=== PATIENT | female | born 1990 | race Caucasian/White ===

== ENCOUNTER 2017-12-30 09:39 | Emergency (ER) | payer MEDICAID ==
[2017-12-30] MEDS: SOD CHLORIDE 0.9% 1,000 ML IV ×2 (10:11→11:36)
[2017-12-30] MEDS: ONDANSETRON 4 MG INJ IV (10:11)
[2017-12-30 10:20] LABS: ADD MAN DIFF? NO
[2017-12-30 10:26] LABS: BASOPHIL # 0.1 10^3/ul (0.0-0.1); BASOPHILS % 0.6 % (0.0-2.0); EOSINOPHILS # 0.1 10^3/ul (0.0-0.5); EOSINOPHILS % 1.1 % (0.0-7.0); LYMPHOCYTES # 2.3 10^3/ul (0.8-2.9); LYMPHOCYTES % 22.8 % (15.0-51.0); MEAN CORPUSCULAR HEMOGLOBIN 31.7 pg (29.0-33.0); MEAN CORPUSCULAR VOLUME 90.7 fl (82.0-101.0); MEAN PLATELET VOLUME 10.9 fl (7.4-10.4); MONOCYTE # 0.5 10^3/ul (0.3-0.9); MONOCYTES % 5.4 % (0.0-11.0); NEUTROPHILS % 69.8 % (39.0-77.0); PLATELET COUNT 249 10^3/UL (140-415); RED BLOOD COUNT 4.41 10^6/ul (4.20-5.40); RED CELL DISTRIBUTION WIDTH 12.2 % (11.5-14.5)
[2017-12-30 10:26] LABS: WHITE BLOOD COUNT 10.1 10^3/ul (4.8-10.8)
[2017-12-30 10:44] LABS: ALANINE AMINOTRANSFERASE 33 IU/L (13-69); ALBUMIN 4.8 g/dl (3.3-4.9); ALBUMIN/GLOBULIN RATIO 1.65; ALKALINE PHOSPHATASE 65 IU/L (42-121); ANION GAP 18 (8-16); ASPARTATE AMINO TRANSFERASE 26 IU/L (15-46); BILIRUBIN,INDIRECT 1.2 mg/dl (0-1.1); BILIRUBIN,TOTAL 1.2 mg/dl (0.2-1.3); BLOOD UREA NITROGEN 15 mg/dl (7-20); CALCIUM 9.5 mg/dl (8.4-10.2); CARBON DIOXIDE 21 mmol/L (21-31); CHLORIDE 109 mmol/L (97-110); CREATININE 0.65 mg/dl (0.44-1.00); GLUCOSE 142 mg/dl (70-220); LIPASE 121 U/L (23-300); POTASSIUM 3.7 mmol/L (3.5-5.1); SODIUM 144 mmol/L (135-144); TOTAL PROTEIN 7.7 g/dl (6.1-8.1)
[2017-12-30] MEDS: LORAZEPAM 2 MG INJ IV (11:08)
== END 2017-12-30 13:06 | disposition home or self-care (01) ==
LOC: FTE 09:39
DX: R11.10 Vomiting, unspecified (principal); R19.7 Diarrhea, unspecified
CPT/HCPCS: 36415; 80053; 81025; 83690; 85025; 96361; 96374; 96375; 99284-25